=== PATIENT | male | born 1980 | race Caucasian/White ===

== ENCOUNTER 2017-01-15 16:29 | Emergency (ER) | payer OTHER, BC ==
[~2017-01-15] VITALS: Ht 172.7 cm; Wt 91.6 kg
[2017-01-15] MEDS ORDERED: [UNRECOGNIZED DRUG - OTHER] PO (16:50)
[2017-01-15] MEDS ORDERED: QUET50TA PO (16:50)
[2017-01-15] MEDS ORDERED: TEST75GE TP (16:50)
--- NOTE | 2017-01-15 17:02 | NUR ---
PT IS IN ROOM #2A. DR EVANS EVALUATED THE PT.
[2017-01-15 17:54] LABS: *BLOOD, URINE NEGATIVE (NEGATIVE); *CLARITY,URINE CLEAR (CLEAR); *COLOR,URINE YELLOW (YELLOW); *KETONES,URINE NEGATIVE (NEGATIVE); *PROTEIN,URINE NEGATIVE (NEGATIVE); LEUKOCYTE ESTERASE ,URINE NEGATIVE (NEGATIVE); NITRITE, URINE NEGATIVE (NEGATIVE); PH,URINE 6.5 (5.0-8.0); UGLUCOSE NEGATIVE (NEGATIVE)
[2017-01-15 17:56] LABS: *BILIRUBIN,URIN 1+ (NEGATIVE)
[2017-01-15 17:59] LABS: BASOPHILS % (AUTO) 0.5 % (0.0-2.0); EOSINOPHILS # (AUTO) 0.1 K/uL (0.0-0.7); EOSINOPHILS % (AUTO) 1.3 % (0.0-7.0); HEMATOCRIT 48.7 % (40-50); HEMOGLOBIN 16.4 G/DL (14.0-18.0); LYMPHOCYTES % (AUTO) 36.5 % (20.5-51.5); MEAN CORPUSCULAR HEMOGLOBIN 30.5 UUG (27.0-31.0); MEAN CORPUSCULAR HGB CONC 34 g/dL (32.0-37.0); MEAN CORPUSCULAR VOLUME 90.3 FL (82.0-92.0); MONOCYTES # (AUTO) 0.6 K/UL (0.1-1.30); MONOCYTES % (AUTO) 11.3 % (0.0-11.0); NEUTROPHILS # (AUTO) 2.8 K/UL (1.8-8.9); NEUTROPHILS % (AUTO) 50.4 % (38.5-71.5); PLATELET COUNT (AUTO) 148 K/UL (150-450); RED BLOOD CELL COUNT(AUTO) 5.39 MIL/UL (4.7-6.1); WHITE BLOOD COUNT (AUTO) 5.4 K/UL (4.0-11.2)
[2017-01-15 18:02] LABS: BACTERIA,URINE NONE SEEN /HPF (NONE SEEN); RBC,URINE 0-3 /HPF (0-3); SQUAMOUS EPITHELIAL CELL,UR FEW /HPF (NONE SEEN); WBC,URINE 0-3 /HPF (0-3)
[2017-01-15] MEDS ORDERED: NORMAL SALINE FLUSH 10 ML DISP.SYRIN ONE (18:13)
[2017-01-15] MEDS ORDERED: IV NORMAL SALINE 250 ML IV ONE (18:13)
[2017-01-15] MEDS ORDERED: IOHEXOL 300MG/ML 100 ML INFUS..BTL ONE (18:13)
[2017-01-15 18:18] LABS: CREATININE 1.1 mg/dL (0.6-1.3); POTASSIUM 4.4 mmol/L (3.5-5.1)
[2017-01-15 18:24] LABS: BILIRUBIN,TOTAL 0.6 mg/dL (0.2-1.0); TOTAL PROTEIN, SERUM 7.2 g/dL (6.4-8.2)
--- NOTE | 2017-01-15 19:12 | NUR ---
PT D/C'D TO HOME AFTER DR STOCK RE-EVALUATION. D/C INSTRUCTIONS GIVEN TO THE PT.
[2017-01-15 19:13] VITALS: BP 135/73
== END 2017-01-15 19:14 | disposition home or self-care (01) ==
LOC: ER 16:30
DX: S30.1XXA Contusion of abdominal wall, initial encounter (principal); N28.1 Cyst of kidney, acquired; X58.XXXA Exposure to other specified factors, initial encounter; Y93.89 Activity, other specified; Y92.9 Unspecified place or not applicable; Y99.9 Unspecified external cause status
CPT/HCPCS: 36415; 70030-TC; 71010; 83690; 85025; 93005; A4663; J3490; J7050; Q9967